=== PATIENT | female | born 1970 | race Caucasian/White ===

== ENCOUNTER 2024-12-06 12:39 | Emergency (ER) | payer BC ==
[~2024-12-06 12:39] MED LIST: Iopamidol 300 61% 100 ML VIAL FS ONE
[2024-12-06] MEDS ORDERED: Ondansetron PF 4 MG/2 ML Vial ONE (14:07)
[2024-12-06 14:11] LABS: #Basophils 0.04 10x3/uL (0.0-0.2); #Eosinophils 0.23 10x3/uL (0.0-0.5); #Monocytes 0.45 10x3/uL (0.0-1.1); #Neutrophils 3.33 10x3/uL (1.5-8.4); %Basophils 0.8 % (0.0-2.0); %Eosinophils 4.6 % (0.0-6.0); %Lymphocytes 19.1 % (18.0-47.0); %Monocytes 8.9 % (0.0-10.0); %Neutrophils 66.2 % (40.0-75.0); Hematocrit 40.7 % (34.9-44.5); Hemoglobin 13.0 g/dL (12.0-15.5); Mean Corpuscular Hemoglobin 31.9 pg (27.0-33.0); Mean Corpuscular Volume 100.0 fL (81.6-98.3); Platelet Count 222 10x3/uL (150-450); Red Blood Cell (RBC) Count 4.07 10x6/uL (3.90-5.03); White Blood Cell (WBC) Count 5.03 10x3/uL (3.5-10.5)
[2024-12-06 14:30] LABS: Glucose, Urine (Dipstick) Normal (Negative); Leukocyte Negative (Negative); Protein, Urine (Dipstick) Negative (Neg-Trace); Specific Gravity, Urine 1.010 (1.005-1.030)
[2024-12-06 14:34] LABS: ALT (SGPT) 17 U/L (Less than 34); AST (SGOT) 23 U/L (11-34); Albumin 4.7 g/dL (3.1-4.5); Alkaline Phosphatase 82 U/L (40-110); Anion Gap 11 mmol/L (10-20); BUN (Urea Nitrogen) 13 mg/dL (9.8-20.1); Bilirubin, Total 0.3 mg/dL (0.3-1.2); Calc. Creatinine Clearance 0 mL/min (70-130); Calcium 9.8 mg/dL (7.8-10.44); Carbon Dioxide 28 mmol/L (22-29); Chloride 104 mmol/L (98-107); Globulin 3.0 g/dL (2.4-3.5); Glucose 87 mg/dL (70-105); Potassium 4.1 mmol/L (3.5-5.1); Sodium 139 mmol/L (136-145)
[2024-12-06 14:52] LABS: Bacteria/HPF None Seen HPF (None Seen); CAUTI Indications for Culture Pelvic or flank pain; RBC/HPF 0-3 HPF (0-3); Urine Culture Reflex No No; WBC/HPF None Seen HPF (0-3)
[2024-12-06] MEDS ORDERED: Ketorolac Tromethamine 30 MG (1 mL) VIAL ONE (15:22)
== END 2024-12-06 15:39 | disposition home or self-care (01) ==
LOC: CSHERS 12:39
DX: N95.0 Postmenopausal bleeding (principal); R10.84 Generalized abdominal pain; R11.0 Nausea; K76.89 Other specified diseases of liver; I48.91 Unspecified atrial fibrillation
CPT/HCPCS: 36415; 74177; 80053; 81001; 83605; 85025; 87040; 96374; 96375; J1885; J2405; J3010